=== PATIENT | male | born 1990 | race African-American/Black ===

== ENCOUNTER 2018-12-04 16:39 | Inpatient (IN) | payer OTHER ==
--- NOTE | 2018-12-04 16:44 | PDOC ---
Rapid Medical Evaluation Time Seen by Provider: 12/04/18 16:42 Medical Evaluation: 12/04/18 16:42 I have performed a brief in-person evaluation of this patient. The patient presents with a chief complaint of:R LQU released from hospital for "appendicitis" Pain x 3 days released from hospital Sunday Pertinent physical exam findings: RLQ tenderness no guarding or rebound I have ordered the following:labs CT The patient will proceed to the ED for further evaluation. 12/04/18 16:44 Discharge Disposition - Diagnosis Abdominal pain - Referrals - Patient Instructions - Post Discharge Activity
[2018-12-04 16:45] VITALS: BMI 30.5
[2018-12-04 17:12] LABS: BASO % 0.4 % (0-2.0); EOS % 0.6 % (0-4.5); HEMATOCRIT 39.6 % (35.4-49); HEMOGLOBIN 13.9 GM/dL (11.7-16.9); LYMPH % 21.2 % (8-40); MEAN CELL VOLUME 82.9 fl (80-96); MEAN PLT VOLUME 7.7 fl (7.5-11.1); MONO % 7.3 % (3.8-10.2); NEUT % 70.5 % (42.8-82.8); PLATELET COUNT 269 K/MM3 (134-434); RBC 4.78 M/mm3 (4.00-5.60); RDW 13.9 % (11.9-15.9)
[2018-12-04 17:43] LABS: ALBUMIN 3.9 g/dl (3.4-5.0); ALK PHOS 95 U/L (45-117); ANION GAP 7 MMOL/L (8-16); BILIRUBIN,TOTAL 0.8 mg/dL (0.2-1); BLOOD UREA NITROGEN 9 mg/dL (7-18); CHLORIDE 105 mmol/L (98-107); CO2 27 mmol/L (21-32); CREATININE 1.4 mg/dL (0.55-1.3); GLUCOSE,RANDOM 96 mg/dL (74-106); POTASSIUM 4.1 mmol/L (3.5-5.1); SGOT/AST 13 U/L (15-37); SGPT/ALT 16 U/L (13-61); SODIUM 139 mmol/L (136-145); TOT PROT 7.6 g/dl (6.4-8.2)
--- NOTE | 2018-12-04 17:58 | PDOC ---
*Physical Exam - Vital Signs Last Vital Signs Temp Pulse Resp BP Pulse Ox 98.1 F 82 16 116/76 98 12/04/18 17:38 12/04/18 17:38 12/04/18 17:38 12/04/18 17:38 12/04/18 17:38 ED Treatment Course - LABORATORY CBC & Chemistry Diagram: 12/05/18 08:00 12/05/18 08:00 - ADDITIONAL ORDERS Additional order review: Laboratory Results 12/04/18 17:04 Sodium 139 Potassium 4.1 Chloride 105 Carbon Dioxide 27 Anion Gap 7 L BUN 9 Creatinine 1.4 H Creat Clearance w eGFR > 60 Random Glucose 96 Calcium 9.0 Total Bilirubin 0.8 AST 13 L ALT 16 Alkaline Phosphatase 95 Total Protein 7.6 Albumin 3.9 12/04/18 17:04 RBC 4.78 MCV 82.9 MCHC 35.0 RDW 13.9 MPV 7.7 Neutrophils % 70.5 Lymphocytes % 21.2 Monocytes % 7.3 Eosinophils % 0.6 Basophils % 0.4 Medical Decision Making - Medical Decision Making 12/04/18 17:58 28 yo M, no significant history who present to the ER with a complaint of RLQ pain, N/V Was seen at an OSH where CT possible appy, admitted, given IV abx, discharged to home Pain has improved, but pt persistently nauseous Pending Labs, Pending CT Pt signed out to overnight team Pt seen by Midlevel Provider under my direct supervision Ancillary studies reviewed I agree with plan as outlined by Midlevel Provider *DC/Admit/Observation/Transfer Diagnosis at time of Disposition: Appendicitis Abdominal pain Qualifiers: Abdominal location: right lower quadrant Qualified Code(s): R10.31 - Right lower quadrant pain - Discharge Dispostion Condition at time of disposition: Improved - Referrals - Patient Instructions - Post Discharge Activity
--- NOTE | 2018-12-04 18:12 | PDOC ---
History of Present Illness - General Chief Complaint: Pain Stated Complaint: ABD/VOMITING Time Seen by Provider: 12/04/18 16:42 History Source: Patient - History of Present Illness Timing/Duration: reports: constant Abdominal Pain Onset Location: reports: RLQ Past History - Past Medical History Allergies/Adverse Reactions: Allergies Allergy/AdvReac Type Severity Reaction Status Date / Time haloperidol [From Haldol] Allergy Verified 12/04/18 16:46 Home Medications: Ambulatory Orders Diphenhydramine HCl [Benadryl -] 25 mg PO ONCE 12/04/18 Paliperidone [Invega -] 3 mg PO DAILY 12/04/18 COPD: No Other medical history: psych - Suicide/Smoking/Psychosocial Hx Smoking History: Never smoked Information on smoking cessation initiated: No Hx Alcohol Use: No Drug/Substance Use Hx: No Review of Systems - Review of Systems Constitutional: No: Chills, Fever ABD/GI: Yes: Nausea, Vomiting, Abdominal cramping. No: Constipated, Diarrhea, Rectal Bleeding, Tarry Stools : No: Dysuria *Physical Exam - Vital Signs Last Vital Signs Temp Pulse Resp BP Pulse Ox 98.1 F 82 16 116/76 98 12/04/18 17:38 12/04/18 17:38 12/04/18 17:38 12/04/18 17:38 12/04/18 17:38 - Physical Exam General Appearance: Yes: Appropriately Dressed. No: Apparent Distress HEENT: positive: Normal Voice Neck: positive: Supple Respiratory/Chest: negative: Respiratory Distress Gastrointestinal/Abdominal: positive: Normal Bowel Sounds, Soft. negative: Tender, Distended, Guarding, Rebound Musculoskeletal: negative: CVA Tenderness Integumentary: positive: Dry, Warm Neurologic: positive: Fully Oriented, Alert, Normal Mood/Affect Moderate Sedation - Procedure Monitoring Vital Signs: Procedure Monitoring Vital Signs Temperature 98.1 F 12/04/18 17:38 Pulse Rate 82 12/04/18 17:38 Respiratory Rate 16 12/04/18 17:38 Blood Pressure 116/76 12/04/18 17:38 O2 Sat by Pulse Oximetry (%) 98 12/04/18 17:38 ED Treatment Course - LABORATORY CBC & Chemistry Diagram: 12/04/18 17:04 12/04/18 17:04 - ADDITIONAL ORDERS Additional order review: Laboratory Results 12/04/18 17:04 Sodium 139 Potassium 4.1 Chloride 105 Carbon Dioxide 27 Anion Gap 7 L BUN 9 Creatinine 1.4 H Creat Clearance w eGFR > 60 Random Glucose 96 Calcium 9.0 Total Bilirubin 0.8 AST 13 L ALT 16 Alkaline Phosphatase 95 Total Protein 7.6 Albumin 3.9 12/04/18 17:04 RBC 4.78 MCV 82.9 MCHC 35.0 RDW 13.9 MPV 7.7 Neutrophils % 70.5 Lymphocytes % 21.2 Monocytes % 7.3 Eosinophils % 0.6 Basophils % 0.4 - RADIOLOGY Radiology Studies Ordered: Category Date Time Status ABDOMEN & PELVIS CT WITH CONTR [CT] Stat CT Scan 12/04/18 17:07 Ordered Medical Decision Making - Medical Decision Making 12/04/18 18:09 28 yo M, no sig hx, here w/ RLQ pain w/ n/v. Pt states he was seen in the ED at [facility] and had CT (dry) which showed possible appy and was admitted overnight and given IV abx. Was discharged yesterday on abx which patient has not been able to take 2/2 persistent n/v. States pain has since improved. No change in BM, f/c See exam R/o appy -labs -CT 12/04/18 18:12 Cr 1.4 w/ > 60GFR. No h/o renal disease. As unclear appy seen on dry CT 2 days ago, would be better to get IV contrast today. Creatinine discussed with patient and understands that benefits outweighs risks in this case. Pt consents to having CT with IV contrast at this time 12/04/18 19:09 Signed out to JOSE Slaughter pending CT read *DC/Admit/Observation/Transfer Diagnosis at time of Disposition: Abdominal pain - Referrals - Patient Instructions - Post Discharge Activity
--- NOTE | 2018-12-04 19:58 | PDOC ---
*Physical Exam - Vital Signs Last Vital Signs Temp Pulse Resp BP Pulse Ox 98.1 F 82 16 116/76 98 12/04/18 17:38 12/04/18 17:38 12/04/18 17:38 12/04/18 17:38 12/04/18 17:38 - Physical Exam General Appearance: Yes: Appropriately Dressed Respiratory/Chest: positive: Lungs Clear, Normal Breath Sounds Cardiovascular: positive: Regular Rhythm, Regular Rate Gastrointestinal/Abdominal: positive: Soft Musculoskeletal: positive: Normal Inspection Extremity: positive: Normal Capillary Refill, Normal Inspection, Normal Range of Motion Integumentary: positive: Normal Color, Dry, Warm Neurologic: positive: Fully Oriented, Alert, Normal Mood/Affect ED Treatment Course - LABORATORY CBC & Chemistry Diagram: 12/04/18 17:04 12/04/18 17:04 - ADDITIONAL ORDERS Additional order review: Laboratory Results 12/04/18 17:04 Sodium 139 Potassium 4.1 Chloride 105 Carbon Dioxide 27 Anion Gap 7 L BUN 9 Creatinine 1.4 H Creat Clearance w eGFR > 60 Random Glucose 96 Calcium 9.0 Total Bilirubin 0.8 AST 13 L ALT 16 Alkaline Phosphatase 95 Total Protein 7.6 Albumin 3.9 12/04/18 17:04 RBC 4.78 MCV 82.9 MCHC 35.0 RDW 13.9 MPV 7.7 Neutrophils % 70.5 Lymphocytes % 21.2 Monocytes % 7.3 Eosinophils % 0.6 Basophils % 0.4 Medical Decision Making - Medical Decision Making 12/04/18 20:00 28 year old male c/o RLQ pain and vomiting. CTAP: early appendicitis could not be excluded. I spoke to Charge Nurse: Abdoulaye galan: chart reviewed ; CT showed early appendicitis. cefoxitin was given x 48 hours . WBC 6.9 i spoke to Christina Bose. patient to be evaluated for surgery 12/04/18 20:29 12/04/18 21:03 Dr. monahan recommends observation. IVF NPO except for meds. surgery consult tomorrow. no antibiotics at this time. antiemetics prn and tylenol for pain. *DC/Admit/Observation/Transfer Diagnosis at time of Disposition: Abdominal pain Qualifiers: Abdominal location: right lower quadrant Qualified Code(s): R10.31 - Right lower quadrant pain Appendicitis Qualifiers: Appendicitis type: acute appendicitis Acute appendicitis type: unspecified acute appendicitis type Qualified Code(s): K35.80 - Unspecified acute appendicitis - Discharge Dispostion Decision to Admit order: Yes - Referrals - Patient Instructions - Post Discharge Activity
[2018-12-04] MEDS ORDERED: SODIUM CHLORIDE 1,000 ML IV SCH ×2 (20:00→20:45)
[2018-12-04] MEDS ORDERED: ACETAMINOPHEN 1000 MG/100 ML VIAL (NON FORMULARY) IVPB ONE (20:25)
[2018-12-04] MEDS ORDERED: ACETAMINOPHEN INJECTION 100 ML IVPB ONE (20:34)
[2018-12-04] MEDS ORDERED: ONDANSETRON 4 MG/2 ML VIAL IVPB ONE (21:04)
[2018-12-04 21:25] LABS: INR 1.06 (0.83-1.09); PROTHROMBIN TIME (PATIENT) 12.5 SEC (9.7-13.0)
--- NOTE | 2018-12-04 21:40 | PN ---
Teaching Attending Note Name of Resident: Brook Eubanks ATTENDING PHYSICIAN STATEMENT I saw and evaluated the patient. I reviewed the resident's note and discussed the case with the resident. I agree with the resident's findings and plan as documented. SUBJECTIVE: Patient is a 28 year old man with PMH of schizophrenia and asthma who presents with RLQ pain, nausea and vomiting. Patient states he was seen in the ED at [facility] and had CT (dry) which showed possible appendicitis and was admitted overnight and given IV antibiotics. He was discharged yesterday on antibiotics which patient has not been able to take due to persistent nause and vomiting. States pain has since improved. No change in BM, fever or chills. Currently on disability and denies use of any illicit drugs. OBJECTIVE: Alert Vital Signs Period Temp Pulse Resp BP Sys/Mejia Pulse Ox Last 24 Hr 98.1 F-98.4 F 68-83 16-19 116-127/76-78 95-98 HEENT: No Jaundice, eye redness or discharge, PERRLA, EOMI. Normocephalic, atraumatic. External ears are normal and hearing is grossly intact. No nasal discharge. Neck: Supple, nontender. No palpable adenopathy or thyromegaly. No JVD Chest: Good effort. Clear to auscultation and percussion. Heart: Regular. No S3, rub or murmur Abdomen: Not distended, soft, RLQ tenderness and no HSM. No rebound or guarding. Normoactive bowel sounds. Ext: Peripheral pulses intact. No leg edema. Skin: Warm and dry. No petechiae, rash or ecchymosis. Neuro: Alert. Oriented x3. CN 2-12 grossly intact. Sensation grossly intact in all four extremities and DTR are symmetric. Current Medications Generic Name Dose Route Start Last Admin Trade Name Freq PRN Reason Stop Dose Admin Sodium Chloride 1,000 mls @ 150 mls/hr 12/04/18 20:00 12/04/18 20:08 Normal Saline - IV 150 mls/hr ASDIR RUBI Administration Sodium Chloride 1,000 mls @ 150 mls/hr 12/04/18 20:45 12/04/18 20:49 Normal Saline - IV 150 mls/hr ASDIR RUBI Administration Home Medications Medication Instructions Recorded Diphenhydramine HCl [Benadryl -] 25 mg PO ONCE 12/04/18 Paliperidone [Invega -] 3 mg PO DAILY 12/04/18 Abnormal Lab Results 12/04/18 17:04 Anion Gap 7 L Creatinine 1.4 H AST 13 L ASSESSMENT AND PLAN: 1. Abdominal Pain/Rule out appendicitis - CT scan suggestive of appendicitis. Prior antibiotics use may be clouding the picture. Will hold off on antibiotics as per surgeon, keep him NPO and control severe pain. IV NS, zofran. WIll get EKG since he is getting Zofran. Check urine toxicology. Surgery consulted. 2. Obesity - Will provide patient all the necessary assistance, counseling and positive reinforcement to facilitate weight loss. Consult lightning protection installer. 3. DVT prophylaxis - SCDs, TEDs 4. Advance directives - Full code
[2018-12-04] MEDS ORDERED: ONDANSETRON 4 MG/2 ML VIAL ONE (22:28)
--- NOTE | 2018-12-04 23:51 | HP ---
CHIEF COMPLAINT: RLQ abdominal pain PCP: Dr. Palomo HISTORY OF PRESENT ILLNESS: 28M w/ pmhx of asthma and schizophrenia presented to the ED with RLQ abdominal pain that started this past Sunday. The pain is 8/10 located in the RLQ as well as umbilical region. It is described as intermittent, non-radiating, sharp, but also pressure-like. The abd pain is worsened with food and alleviated when he is not eating. He denies taking anything for the pain. He does admit to eating fish that he cooks at home, however when he does eat, he feels the need to vomit. Today he reported 2 episodes of nonbloody, non-bilious vomiting soon after eating. He denies eating anything new from what he usually eats. He also endorses 1 episode of diarrhea today, non-bloody. Of note, pt was recently seen at [facility] for the same symptoms where a CTAP was done that showed early appendicitis. During that previous admission at [facility], pt was given 1 dose of Cefoxitin and evaluated by surgery, but no surgical intervention was needed. He was subsequently discharged, but these abdominal symptoms still persisted. Denies chest pain, sob, headache, dizziness, fever/chills, dysuria, hematuria, blood in the stool. ER course was notable for: (1) VS wnl, normal WBC, BUN/Cr 9/1.4 (2) CTAP showed borderline appendix 10 mm diameter and ? minimal stranding surrounding fat w/o evid. of extraluminal air/fluid collection/abscess (3) NS @ 150, IV Tylenol; per surg recs, no abx recommended, keep NPO except meds, admit to obs Recent Travel: Denies PAST MEDICAL HISTORY: Asthma Schizophrenia PAST SURGICAL HISTORY: hernia repair at 6 months of age Social History: Smoking: Denies Alcohol: Denies Drugs: Denies Family History: Father - recently from colon cancer Oct 2018 at age 49 Allergies haloperidol [From Haldol] Allergy (Verified 12/04/18 16:46) tongue swelling HOME MEDICATIONS: Home Medications Medication Instructions Recorded Diphenhydramine HCl [Benadryl -] 25 mg PO ONCE 12/04/18 Paliperidone [Invega -] 3 mg PO DAILY 12/04/18 REVIEW OF SYSTEMS CONSTITUTIONAL: Denies fever/chills, diaphoresis, generalized weakness, malaise , loss of appetite, weight change HEENT: Denies throat pain, throat swelling, eye pain; Admits to some blurry vision but has not seen an ophtho CARDIOVASCULAR: Denies chest pain, syncope, palpitations, irregular heart rate, lightheadedness, peripheral edema RESPIRATORY: Denies cough, shortness of breath, dyspnea with exertion GASTROINTESTINAL: Admits to RLQ pain, umbilical pain, nausea/vomiting, diarrhea ; Denies constipation, melena, hematochezia GENITOURINARY: Denies dysuria, frequency, urgency, hesitancy, hematuria, flank pain MUSCULOSKELETAL: Denies myalgia, arthralgia, joint swelling, back pain, neck pain NEUROLOGIC: Denies headache, focal weakness or paresthesias, dizziness, unsteady gait, seizure, mental status changes PHYSICAL EXAMINATION Vital Signs - 24 hr 12/04/18 12/04/18 12/04/18 16:43 17:38 20:29 Temperature 98.1 F 98.1 F 98.4 F Pulse Rate 83 Pulse Rate [ 82 68 Left Radial] Respiratory 19 16 16 Rate Blood Pressure 116/76 Blood Pressure 116/76 127/78 [Right Arm] O2 Sat by Pulse 95 98 98 Oximetry (%) GENERAL: AAOx3. Comfortable, NAD. HEENT: AT/NC. EOMI. DELBERT. Moist mucus membranes. NECK: Supple, normal ROM. No LAD. LUNGS: CTA B/L. No wheezes/crackles noted. Symmetric chest rise. HEART: RRR. Normal S1, S2. No murmurs noted. ABDOMEN: Soft, ND. +TTP RLQ and umbilical region. -Juarez sign, -Rovsing sign, + McBurney's point, -Obturator sign. No rebound tenderness or guarding. No masses or ecchymoses seen. MUSCULOSKELETAL: Normal range of motion at all joints. No bony deformities or tenderness. No CVA tenderness. UPPER EXTREMITIES: 2+ pulses, warm, well-perfused. No cyanosis. No clubbing. No peripheral edema. LOWER EXTREMITIES: 2+ pulses, warm, well-perfused. No calf tenderness. No peripheral edema. NEUROLOGICAL: Normal speech. Normal gait. Responds to commands. PSYCHIATRIC: Cooperative. Good eye contact. Flat affect. SKIN: Warm, dry, normal turgor, no rashes or lesions noted, normal capillary refill. Laboratory Results - last 24 hr 12/04/18 12/04/18 12/04/18 17:04 17:04 20:44 WBC 7.0 RBC 4.78 Hgb 13.9 Hct 39.6 MCV 82.9 MCH 29.0 MCHC 35.0 RDW 13.9 Plt Count 269 MPV 7.7 Absolute Neuts (auto) 4.9 Neutrophils % 70.5 Lymphocytes % 21.2 Monocytes % 7.3 Eosinophils % 0.6 Basophils % 0.4 Nucleated RBC % 0 PT with INR 12.50 INR 1.06 PTT (Actin FS) 35.0 Sodium 139 Potassium 4.1 Chloride 105 Carbon Dioxide 27 Anion Gap 7 L BUN 9 Creatinine 1.4 H Creat Clearance w eGFR > 60 Random Glucose 96 Calcium 9.0 Total Bilirubin 0.8 AST 13 L ALT 16 Alkaline Phosphatase 95 Total Protein 7.6 Albumin 3.9 Blood Type Antibody Screen 12/04/18 20:44 WBC RBC Hgb Hct MCV MCH MCHC RDW Plt Count MPV Absolute Neuts (auto) Neutrophils % Lymphocytes % Monocytes % Eosinophils % Basophils % Nucleated RBC % PT with INR INR PTT (Actin FS) Sodium Potassium Chloride Carbon Dioxide Anion Gap BUN Creatinine Creat Clearance w eGFR Random Glucose Calcium Total Bilirubin AST ALT Alkaline Phosphatase Total Protein Albumin Blood Type O POSITIVE Antibody Screen Negative CONSULTS: Surg- Dr. Vasquez IMAGING: * CTAP: Borderline size of the appendix measuring 10 mm diameter with questionable minimal stranding of the surrounding fat and w/o evidence of extraluminal air or fluid collection/abscess. Although exam not consistent with acute appendicitis, mild/early appendicitis could not be excluded. * EKG: sinus talia, HR 53, QTc 394 ms, no evid of ST-T changes, or TWI ASSESSMENT/PLAN: 28M w/ pmhx of asthma and schizophrenia presented to the ED with RLQ abdominal pain. #Abdominal pain; r/o early appendicitis vs. viral gastroenteritis -CTAP noted above; cannot r/o early appendicitis. -Per surg recs, keep pt NPO except meds, give IVF, no abx needed now, avoid narcotics for pain control; await further recs -Utox ordered -Zofran PRN for nausea -Tylenol 650 PRN for pain #Schizophrenia Cont home med: Invega 3 mg QD #Asthma; controlled. -Pt has hx of asthma but has not needed to use his PRN inhaler in years. -Monitor #Prophylaxis -SCDs #FEN -NS @ 150 -recheck BMP in AM (Cr) -NPO except meds dispo -admit to med-surg -full code Visit type - Emergency Visit Emergency Visit: Yes ED Registration Date: 12/04/18 Care time: The patient presented to the Emergency Department on the above date and was hospitalized for further evaluation of their emergent condition. - New Patient This patient is new to me today: Yes Date on this admission: 12/05/18 - Critical Care Critical Care patient: No
[2018-12-05] MEDS ORDERED: ACETAMINOPHEN 325 MG TABLET (FP) PO PRN ×2 (00:07→17:51)
[2018-12-05 04:04] LABS: COCAINE, UR NEGATIVE ng/ml (CUTOFF=300); METHADONE, UR NEGATIVE ng/ml (CUTOFF=300); OPIATES, URI NEGATIVE ng/ml (CUTOFF=300); PHENCYCLIDINE,URINE NEGATIVE ng/ml (CUTOFF=25); URINE AMPHETAMINES NEGATIVE ng/ml (CUTOFF=500); URINE BARBITURATES NEGATIVE ng/ml (CUTOFF=200); URINE BENZODIAZEPINES NEGATIVE ng/ml (CUTOFF=200)
[2018-12-05 04:12] LABS: PH,URINE 6.5 (5.0-8.0); URINE APPEARANCE Clear; URINE BILIRUBIN Negative (<2.0 mg/dL); URINE COLOR Yellow; URINE GLUCOSE (UA) Negative (NEGATIVE); URINE KETONE 1+ (NEGATIVE); URINE LEUK ESTERASE Negative (NEGATIVE); URINE NITRITE Negative (NEGATIVE); URINE PROTEIN Negative (NEGATIVE); URINE UROBILINOGEN 0.2 mg/dL (0.2-1.0)
--- NOTE | 2018-12-05 07:12 | CONSULT ---
Consult Consult Specialty:: general surgery Reason for Consultation:: appendicitis? - History of Present Illness Chief Complaint: right lower quadrant abdominal pain History of Present Illness: 28yo male PMH asthma and schizophrenia presented to the ED with RLQ abdominal pain that started this past Sunday. The pain is 8/10 located in the RLQ as well as umbilical region. It is described as intermittent, non-radiating, sharp, but also pressure-like. The abd pain is worsened with food and alleviated when he is not eating. He denies taking anything for the pain. He does admit to eating fish that he cooks at home, however when he does eat, he feels the need to vomit. Today he reported 2 episodes of nonbloody, non-bilious vomiting soon after eating. He denies eating anything new from what he usually eats. He also endorses 1 episode of diarrhea today, non-bloody. Of note, pt was recently seen at [facility] for the same symptoms where a CTAP was done that showed early appendicitis. During that previous admission at [facility], pt was given 1 dose of Cefoxitin and evaluated by surgery, but no surgical intervention was needed. He was subsequently discharged, but these abdominal symptoms still persisted. We were asked to assess. - History Source History Provided By: Patient, Medical Record Limitations to Obtaining History: Poor Historian - Alcohol/Substance Use Hx Alcohol Use: No - Smoking History Smoking history: Never smoked Home Medications - Allergies Allergies/Adverse Reactions: Allergies Allergy/AdvReac Type Severity Reaction Status Date / Time haloperidol [From Haldol] Allergy Verified 12/04/18 16:46 - Home Medications Home Medications: Ambulatory Orders Diphenhydramine HCl [Benadryl -] 25 mg PO ONCE 12/04/18 Paliperidone [Invega -] 3 mg PO DAILY 12/04/18 Family Disease History - Family Disease History Family Disease History: CA: Father Review of Systems - Review of Systems Constitutional: denies: Chills, Fever Eyes: denies: Blind Spots, Recent Change in Vision HENT: denies: Difficult Swallowing, Toothache Neck: denies: Decreased ROM, Tenderness Cardiovascular: denies: Chest Pain, Palpitations Respiratory: denies: Cough, SOB Gastrointestinal: reports: Abdominal Pain, Nausea, Vomiting. denies: Constipation, Diarrhea Genitourinary: denies: Burning, Discharge, Dysuria Breasts: reports: No Symptoms Reported. denies: Pain Musculoskeletal: denies: Joint Swelling, Muscle Pain, Muscle Cramps Integumentary: denies: Pruritis, Wound Neurological: denies: Change in LOC, Change in Speech, Seizure, Syncope Endocrine: denies: Unexplained Weight Gain, Unexplained Weight Loss Hematology/Lymphatic: denies: Easily Bruised, Excessive Bleeding Psychiatric: reports: Paranoia. denies: Anxiety, Depression Physical Exam Vital Signs: Vital Signs Temperature 97.6 F 12/05/18 06:00 Pulse Rate 55 L 12/05/18 06:00 Respiratory Rate 18 12/05/18 06:00 Blood Pressure 97/44 L 12/05/18 06:00 O2 Sat by Pulse Oximetry (%) 99 12/05/18 02:12 Constitutional: Yes: Well Nourished, No Distress, Calm Eyes: Yes: Conjunctiva Clear, EOM Intact HENT: Yes: Atraumatic, Normocephalic Neck: Yes: Supple, Trachea Midline Cardiovascular: Yes: Regular Rate and Rhythm, S1, S2 Respiratory: Yes: Regular, CTA Bilaterally Gastrointestinal: Yes: Normal Bowel Sounds, Soft, Hernia (small umbilical hernia ), Tenderness, Tenderness, Rebound (RLQ). No: Abdomen, Obese, Ascites, Distention, Hepatomegaly, Tenderness, Epigastrium, Vomiting Renal/: No: CVA Tenderness - Left, CVA Tenderness - Right Breast(s): No: Gynecomastia, Mass, Nipple Inversion Musculoskeletal: No: Muscle Pain, Muscle Weakness Extremities: No: Cool, Cyanosis Edema: No Peripheral Pulses WNL: Yes Integumentary: No: Jaundice, Laceration Neurological: Yes: Alert, Oriented Psychiatric: Yes: Alert, Oriented Labs: CBC, BMP 12/04/18 17:04 12/04/18 17:04 Imaging - Results Cat Scan: Report Reviewed, Image Reviewed (10mm appendix, luminal air, some possible mild inflamatory changes) Problem List - Problems (1) Appendicitis Assessment/Plan: 28 yo male with persistent RLQ pain, no similar previous pains, no fever, normal WBC while in PO antibiotics from [facility], Imaging finding are suspicious but not diagnostic. He has RLQ tenderness that is focal, without peritonitis. He is explained all finding and offered appendectomy. He is aware of the possibility of it not being acute but is willing to proceed. NPO and IVF hydration IV antibiotics now and continue PO as an outpatient adequate analgesia Discussed with patient risks, benefits and alternatives of laparoscopic possible open ectomy, including but not limited to bleeding, infection, injury to adjacent structures, leak or injury, intraabdominal abscess, incisional hernia, need for further procedures, ; alternatives include antibiotics, delayed or no surgery - risks of this include failure of nonoperative therapy, perforation, sepsis, recurrence, . Patient desires to proceed with operation - will take to OR for above. Informed consent signed for same. Thank you for the opportunity to participate in the care of this patient. Code(s): K37 - UNSPECIFIED APPENDICITIS Qualifiers: Appendicitis type: acute appendicitis Acute appendicitis type: unspecified acute appendicitis type Qualified Code(s): K35.80 - Unspecified acute appendicitis (2) Right lower quadrant abdominal pain Code(s): R10.31 - RIGHT LOWER QUADRANT PAIN (3) Schizophrenia Code(s): F20.9 - SCHIZOPHRENIA, UNSPECIFIED Qualifiers: Schizophrenia type: paranoid schizophrenia Qualified Code(s): F20.0 - Paranoid schizophrenia (4) Asthma Code(s): J45.909 - UNSPECIFIED ASTHMA, UNCOMPLICATED Qualifiers: Asthma severity: mild Asthma persistence: intermittent Asthma complication type: uncomplicated Qualified Code(s): J45.20 - Mild intermittent asthma, uncomplicated
[2018-12-05 08:35] LABS: BASO % 0.4 % (0-2.0); EOS % 0.8 % (0-4.5); HEMATOCRIT 36.9 % (35.4-49); HEMOGLOBIN 12.7 GM/dL (11.7-16.9); LYMPH % 32.2 % (8-40); MCH 28.5 pg (25.7-33.7); MCHC 34.4 g/dl (32.0-35.9); MEAN CELL VOLUME 82.8 fl (80-96); MEAN PLT VOLUME 7.8 fl (7.5-11.1); MONO % 8.9 % (3.8-10.2); NEUT % 57.7 % (42.8-82.8); PLATELET COUNT 245 K/MM3 (134-434); RBC 4.46 M/mm3 (4.00-5.60); RDW 13.5 % (11.9-15.9); WHITE BLOOD COUNT 5.1 K/mm3 (4.0-10.0)
[2018-12-05 08:57] LABS: ALBUMIN 3.4 g/dl (3.4-5.0); ALK PHOS 81 U/L (45-117); ANION GAP 6 MMOL/L (8-16); BILIRUBIN,TOTAL 0.8 mg/dL (0.2-1); BLOOD UREA NITROGEN 5 mg/dL (7-18); CALCIUM 8.2 mg/dL (8.5-10.1); CHLORIDE 109 mmol/L (98-107); CO2 26 mmol/L (21-32); CREATININE 1.1 mg/dL (0.55-1.3); GLUCOSE,RANDOM 74 mg/dL (74-106); POTASSIUM 4.1 mmol/L (3.5-5.1); SGOT/AST 9 U/L (15-37); SGPT/ALT 11 U/L (13-61); SODIUM 141 mmol/L (136-145); TOT PROT 6.3 g/dl (6.4-8.2)
[2018-12-05] MEDS ORDERED: ENOXAPARIN NA (PORCINE) 40 MG/0.4 ML DISP.SYRIN SQ SCH (10:00)
[2018-12-05] MEDS ORDERED: PALIPERIDONE 3 MG PO SCH ×2 (10:00)
--- NOTE | 2018-12-05 13:14 | PN ---
Physical Exam: SUBJECTIVE: Patient seen and examined at bedside- patient is still having some minor pain rates it a 4/10 however denies any N/V fevers or chills OBJECTIVE: Vital Signs Period Temp Pulse Resp BP Sys/Mejia Pulse Ox Last 24 Hr 97.6 F-98.4 F 55-83 16-20 97-132/44-87 95-99 GENERAL: The patient is awake, alert, and fully oriented, in no acute distress. EYES:EOMI; PEERLA: no sclerla icterus. NECK: no JVD; no lymphadenopathy LUNGS: CTA B/L; no rales, rhonchi or wheezing. HEART: Regular rate and rhythm, S1, S2 without murmur, rub or gallop. ABDOMEN: distended; slight tenderness negative rovsings +BS in all 4 quadrants EXTREMITIES: 2+ pulses, warm, well-perfused, no edema. NEUROLOGICAL: Cranial nerves II through XII grossly intact. Normal speech, gait not observed. PSYCH: Normal mood, flat affect. SKIN: Warm, dry, normal turgor, no rashes or lesions noted Laboratory Results - last 24 hr 12/04/18 12/04/18 12/04/18 17:04 17:04 20:44 WBC 7.0 RBC 4.78 Hgb 13.9 Hct 39.6 MCV 82.9 MCH 29.0 MCHC 35.0 RDW 13.9 Plt Count 269 MPV 7.7 Absolute Neuts (auto) 4.9 Neutrophils % 70.5 Lymphocytes % 21.2 Monocytes % 7.3 Eosinophils % 0.6 Basophils % 0.4 Nucleated RBC % 0 PT with INR 12.50 INR 1.06 PTT (Actin FS) 35.0 Sodium 139 Potassium 4.1 Chloride 105 Carbon Dioxide 27 Anion Gap 7 L BUN 9 Creatinine 1.4 H Creat Clearance w eGFR > 60 Random Glucose 96 Calcium 9.0 Total Bilirubin 0.8 AST 13 L ALT 16 Alkaline Phosphatase 95 Total Protein 7.6 Albumin 3.9 Urine Color Urine Appearance Urine pH Ur Specific [place] Urine Protein Urine Glucose (UA) Urine Ketones Urine Blood Urine Nitrite Urine Bilirubin Urine Urobilinogen Ur Leukocyte Esterase Opiates Screen Methadone Screen Barbiturate Screen Phencyclidine Screen Ur Amphetamines Screen MDMA (Ecstasy) Screen Benzodiazepines Screen Cocaine Screen U Marijuana (THC) Screen Blood Type Antibody Screen 12/04/18 12/05/18 12/05/18 20:44 02:00 02:40 WBC RBC Hgb Hct MCV MCH MCHC RDW Plt Count MPV Absolute Neuts (auto) Neutrophils % Lymphocytes % Monocytes % Eosinophils % Basophils % Nucleated RBC % PT with INR INR PTT (Actin FS) Sodium Potassium Chloride Carbon Dioxide Anion Gap BUN Creatinine Creat Clearance w eGFR Random Glucose Calcium Total Bilirubin AST ALT Alkaline Phosphatase Total Protein Albumin Urine Color Yellow Urine Appearance Clear Urine pH 6.5 Ur Specific [place] 1.010 Urine Protein Negative Urine Glucose (UA) Negative Urine Ketones 1+ H Urine Blood Negative Urine Nitrite Negative Urine Bilirubin Negative Urine Urobilinogen 0.2 Ur Leukocyte Esterase Negative Opiates Screen Negative Methadone Screen Negative Barbiturate Screen Negative Phencyclidine Screen Negative Ur Amphetamines Screen Negative MDMA (Ecstasy) Screen Negative Benzodiazepines Screen Negative Cocaine Screen Negative U Marijuana (THC) Screen Negative Blood Type O POSITIVE Antibody Screen Negative 12/05/18 12/05/18 08:00 08:00 WBC 5.1 RBC 4.46 Hgb 12.7 Hct 36.9 MCV 82.8 MCH 28.5 MCHC 34.4 RDW 13.5 Plt Count 245 MPV 7.8 Absolute Neuts (auto) 3.0 Neutrophils % 57.7 Lymphocytes % 32.2 D Monocytes % 8.9 Eosinophils % 0.8 Basophils % 0.4 Nucleated RBC % 0 PT with INR INR PTT (Actin FS) Sodium 141 Potassium 4.1 Chloride 109 H Carbon Dioxide 26 Anion Gap 6 L BUN 5 L Creatinine 1.1 Creat Clearance w eGFR > 60 Random Glucose 74 Calcium 8.2 L Total Bilirubin 0.8 AST 9 L ALT 11 L Alkaline Phosphatase 81 Total Protein 6.3 L Albumin 3.4 Urine Color Urine Appearance Urine pH Ur Specific [place] Urine Protein Urine Glucose (UA) Urine Ketones Urine Blood Urine Nitrite Urine Bilirubin Urine Urobilinogen Ur Leukocyte Esterase Opiates Screen Methadone Screen Barbiturate Screen Phencyclidine Screen Ur Amphetamines Screen MDMA (Ecstasy) Screen Benzodiazepines Screen Cocaine Screen U Marijuana (THC) Screen Blood Type Antibody Screen Active Medications Generic Name Dose Route Start Last Admin Trade Name Freq PRN Reason Stop Dose Admin Acetaminophen 650 mg 12/05/18 00:07 Tylenol - PO Q4H PRN PAIN LEVEL 6-10 Sodium Chloride 1,000 mls @ 150 mls/hr 12/04/18 20:45 12/04/18 20:49 Normal Saline - IV 150 mls/hr ASDIR RUBI Administration Patient's Own Med ( 3 each 12/05/18 10:00 Paliperidone 3mg PO Tablets) DAILY RUBI ASSESSMENT/PLAN: 28M w/ pmhx of asthma and schizophrenia presented to the ED with RLQ abdominal pain. #Abdominal pain; r/o early appendicitis vs. viral gastroenteritis -Per surg recs, keep pt NPO except meds, give IVF, no abx needed now, avoid narcotics for pain control; await further recs -Utox ordered -Zofran PRN for nausea -Tylenol 650 PRN for pain #Schizophrenia Cont home med: Invega 3 mg QD #Asthma; controlled. -Pt has hx of asthma but has not needed to use his PRN inhaler in years. -Monitor #Prophylaxis -SCDs #FEN -NS @ 150 -recheck BMP in AM (Cr) -NPO except meds dispo -admit to med-surg -full code Problem List - Problems (1) Abdominal pain Code(s): R10.9 - UNSPECIFIED ABDOMINAL PAIN Qualifiers: Abdominal location: right lower quadrant Qualified Code(s): R10.31 - Right lower quadrant pain (2) Appendicitis Code(s): K37 - UNSPECIFIED APPENDICITIS Qualifiers: Appendicitis type: acute appendicitis Acute appendicitis type: unspecified acute appendicitis type Qualified Code(s): K35.80 - Unspecified acute appendicitis Visit type - Emergency Visit Emergency Visit: Yes ED Registration Date: 12/04/18 Care time: The patient presented to the Emergency Department on the above date and was hospitalized for further evaluation of their emergent condition. - New Patient This patient is new to me today: Yes Date on this admission: 12/05/18 - Critical Care Critical Care patient: No
[2018-12-05] MEDS ORDERED: ROCURONIUM BROMIDE 50 MG/5 ML VIAL ONE ×2 (14:26→15:42)
[2018-12-05] MEDS ORDERED: SODIUM CHLORIDE 0.9% P/F 10 ML VIAL IJ ONE (14:26)
[2018-12-05] MEDS ORDERED: ceFAZolin SODIUM 1 GM VIAL ONE (14:26)
[2018-12-05] MEDS ORDERED: DEXAMETHASONE SOD PHOSPHATE 4 MG/1 ML VIAL ONE (14:26)
[2018-12-05] MEDS ORDERED: PROPOFOL 20 ML ONE ×2 (14:26→15:42)
[2018-12-05] MEDS ORDERED: LIDOCAINE HCL/PF 2% SDV 5ML VIAL ONE (14:26)
--- NOTE | 2018-12-05 15:40 | EKG ---
Test Reason : Blood Pressure : / mmHG Vent. Rate : 053 BPM Atrial Rate : 053 BPM P-R Int : 162 ms QRS Dur : 088 ms QT Int : 420 ms P-R-T Axes : 056 086 054 degrees QTc Int : 394 ms SINUS BRADYCARDIA OTHERWISE NORMAL ECG NO PREVIOUS ECGS AVAILABLE Confirmed by JUANY CONNELL, MARYLOU ([id number]) on 12/05/2018 3:40:31 PM Referred By: Confirmed By:MARYLOU HARRINGTON MD
[2018-12-05] MEDS ORDERED: MIDAZOLAM HCL 2 MG/2 ML SINGLE DOSE VIAL ONE (15:42)
[2018-12-05] MEDS ORDERED: SUCCINYLCHOLINE CHLORIDE 200 MG/10 ML VIAL ONE (15:42)
--- NOTE | 2018-12-05 16:01 | PN ---
Teaching Attending Note Name of Resident: Mariel Gordillo ATTENDING PHYSICIAN STATEMENT I saw and evaluated the patient. I reviewed the resident's note and discussed the case with the resident. I agree with the resident's findings and plan as documented. SUBJECTIVE: Patient is c/o having RLQ abdominal pain, but has been having watery like stool , with no formed stool since Sunday. OBJECTIVE: Vital Signs Temperature 98.5 F 12/05/18 15:00 Pulse Rate 73 12/05/18 15:00 Respiratory Rate 17 12/05/18 15:00 Blood Pressure 121/63 12/05/18 15:00 O2 Sat by Pulse Oximetry (%) 99 12/05/18 09:00 GENERAL: The patient is awake, alert, and fully oriented, in no acute distress. EYES:EOMI; PEERLA: no sclerla icterus. NECK: no JVD; no lymphadenopathy LUNGS: CTA B/L; no rales, rhonchi or wheezing. HEART: Regular rate and rhythm, S1, S2 without murmur, rub or gallop. ABDOMEN: mild distention, slight tenderness on the RLQ , no rebound or guarding , positive BS in all 4 quadrants. EXTREMITIES: 2+ pulses, warm, well-perfused, no edema. NEUROLOGICAL: Cranial nerves II through XII grossly intact. Normal speech, gait not observed. PSYCH: Normal mood, flat affect. SKIN: Warm, dry, normal turgor, no rashes or lesions noted CBCD WBC 5.1 K/mm3 (4.0-10.0) 12/05/18 08:00 RBC 4.46 M/mm3 (4.00-5.60) 12/05/18 08:00 Hgb 12.7 GM/dL (11.7-16.9) 12/05/18 08:00 Hct 36.9 % (35.4-49) 12/05/18 08:00 MCV 82.8 fl (80-96) 12/05/18 08:00 MCHC 34.4 g/dl (32.0-35.9) 12/05/18 08:00 RDW 13.5 % (11.9-15.9) 12/05/18 08:00 Plt Count 245 K/MM3 (134-434) 12/05/18 08:00 MPV 7.8 fl (7.5-11.1) 12/05/18 08:00 CMP Sodium 141 mmol/L (136-145) 12/05/18 08:00 Potassium 4.1 mmol/L (3.5-5.1) 12/05/18 08:00 Chloride 109 mmol/L (98-107) H 12/05/18 08:00 Carbon Dioxide 26 mmol/L (21-32) 12/05/18 08:00 Anion Gap 6 MMOL/L (8-16) L 12/05/18 08:00 BUN 5 mg/dL (7-18) L 12/05/18 08:00 Creatinine 1.1 mg/dL (0.55-1.3) 12/05/18 08:00 Creat Clearance w eGFR > 60 (>60) 12/05/18 08:00 Random Glucose 74 mg/dL (74-106) 12/05/18 08:00 Calcium 8.2 mg/dL (8.5-10.1) L 12/05/18 08:00 Total Bilirubin 0.8 mg/dL (0.2-1) 12/05/18 08:00 AST 9 U/L (15-37) L 12/05/18 08:00 ALT 11 U/L (13-61) L 12/05/18 08:00 Alkaline Phosphatase 81 U/L (45-117) 12/05/18 08:00 Total Protein 6.3 g/dl (6.4-8.2) L 12/05/18 08:00 Albumin 3.4 g/dl (3.4-5.0) 12/05/18 08:00 Current Medications Generic Name Dose Route Start Last Admin Trade Name Ophelia PRN Reason Stop Dose Admin Acetaminophen 650 mg 12/05/18 00:07 Tylenol - PO Q4H PRN PAIN LEVEL 6-10 Sodium Chloride 1,000 mls @ 150 mls/hr 12/04/18 20:45 12/04/18 20:49 Normal Saline - IV 150 mls/hr ASDIR RUBI Administration Patient's Own Med ( 3 each 12/05/18 10:00 Paliperidone 3mg PO Tablets) DAILY [facility] Home Medications Medication Instructions Recorded Diphenhydramine HCl [Benadryl -] 25 mg PO ONCE 12/04/18 Paliperidone [Invega -] 3 mg PO DAILY 12/04/18 Urine Test Results Urine Color Yellow 12/05/18 02:40 Urine Appearance Clear 12/05/18 02:40 Urine pH 6.5 (5.0-8.0) 12/05/18 02:40 Ur Specific [place] 1.010 (1.010-1.035) 12/05/18 02:40 Urine Protein Negative (NEGATIVE) 12/05/18 02:40 Urine Glucose (UA) Negative (NEGATIVE) 12/05/18 02:40 Urine Ketones 1+ (NEGATIVE) H 12/05/18 02:40 Urine Blood Negative (NEGATIVE) 12/05/18 02:40 Urine Nitrite Negative (NEGATIVE) 12/05/18 02:40 Urine Bilirubin Negative (<2.0 mg/dL) 12/05/18 02:40 Ur Leukocyte Esterase Negative (NEGATIVE) 12/05/18 02:40 CT abdomen and pelvis reviewed: No appendicitis but na't be excluded early appendicitis as per CT read. ASSESSMENT AND PLAN: Patient is a 28M with pmhx of asthma and schizophrenia presented to the ED with RLQ abdominal pain. #Abdominal pain: as per Ct , no appendicitis but early appendicitis cannot be excluded. As per surgeon, patient will go to OR for an appendectomy. Utox is negative. Zofran PRN for nausea; Tylenol 650 PRN for pain #Schizophrenia: cont home med: Invega 3 mg QD #Asthma; controlled: PRN inhaler #DVT Px: SCDs admit to med-surg full code
[2018-12-05] MEDS ORDERED: BUPIVACAINE HCL/PF 0.5% (5MG/ML) 10 ML VIAL ONE (16:12)
[2018-12-05] MEDS ORDERED: ONDANSETRON 4 MG/2 ML VIAL IVPUSH PRN ×2 (16:17→17:53)
[2018-12-05] MEDS ORDERED: LACTATED RINGERS SOLUTION 1,000 ML IV SCH (16:30)
[2018-12-05] MEDS ORDERED: ceFAZolin 2 GRAM PREMIX BAG IVPB ONE (16:45)
[2018-12-05] MEDS ORDERED: ceFAZolin SODIUM 1 GM VIAL IVPB ONE (16:45)
[2018-12-05] MEDS ORDERED: KETOROLAC TROMETHAMINE 30 MG/1 ML VIAL ONE (17:12)
[2018-12-05] MEDS ORDERED: GLYCOPYRROLATE 0.2 MG/1 ML VIAL ONE (17:12)
[2018-12-05] MEDS ORDERED: NEOSTIGMINE METHYLSULFATE 0.5 MG/ML - 10 ML MDV ONE (17:12)
[2018-12-05] MEDS ORDERED: BUPIVACAINE HCL/PF 0.5% (5MG/ML) 10 ML VIAL IJ ONE (17:22)
[2018-12-05] MEDS ORDERED: BUPIVACAINE HCL/PF (5 MG/ML) 30 ML VIAL IJ ONE (17:22)
[2018-12-05] MEDS ORDERED: ACETAMINOPHEN 1000 MG/100 ML VIAL (NON FORMULARY) IVPB ONE ×2 (18:02→18:40)
--- NOTE | 2018-12-05 18:02 | OP ---
Operative Note - Note: Operative Date: 12/05/18 Pre-Operative Diagnosis: appendicitis Operation: laparoscopic appendectomy Findings: fusiform shapeed dilation mid appendix. no adjacent inflamatory changes or serosal irregularities. Post-Operative Diagnosis: Same as Pre-op Surgeon: Jaquan Cleary Anesthesiologist/SUPERVISOR ELEMENTARY EDUCATION: Alhaji Yun Anesthesia: General, Local (0.5% marcaine at port sites ) Specimens Removed: appendix Estimated Blood Loss (mls): 2 Drains, Volume Out (mls): 200 (shearer removed ) Fluid Volume Replaced (mls): 800 Operative Report Dictated: Yes
[2018-12-05] MEDS ORDERED: CEFOXITIN SODIUM 2 GM in DEXTROSE 5%-WATER - 100 ML IVPB ONE (18:06)
[2018-12-05] MEDS ORDERED: ACETAMINOPHEN INJECTION 100 ML IVPB ONE (18:31)
[2018-12-05] MEDS ORDERED: cefOXitin SODIUM 2 GM VIAL (RESTRICTED TO ID) IVPB ONE (19:02)
[2018-12-05] MEDS: SODIUM CHLORIDE 1,000 ML IV SCH (20:46)
[2018-12-06] MEDS: morphine SULFATE 4 MG/ML VIAL IVPUSH PRN ×3 (00:54→21:39)
--- NOTE | 2018-12-06 02:28 | PN ---
Progress Note, Physician Chief Complaint: RLQ abdominal pain and intractable vomiting History of Present Illness: 28yo male PMH asthma and schizophrenia presented to the ED with RLQ abdominal pain that started this past Sunday. The pain is 8/10 located in the RLQ as well as umbilical region. stable post operatively. - Current Medication List Current Medications: Active Medications Acetaminophen (Tylenol -) 650 mg PO Q6H PRN PRN Reason: PAIN LEVEL 1-5 Sodium Chloride (Normal Saline -) 1,000 mls @ 150 mls/hr IV ASDIR RUBI Last Admin: 12/05/18 20:46 Dose: 150 mls/hr Ibuprofen (Motrin -) 600 mg PO Q6H PRN PRN Reason: PAIN LEVEL 1-5 Morphine Sulfate (Morphine Sulfate) 4 mg IVPUSH Q4H PRN PRN Reason: PAIN LEVEL 7 - 10 Last Admin: 12/06/18 00:54 Dose: 4 mg Non-Formulary Medication (Non-Formulary Med) 3 each PO DAILY RUBI Ondansetron HCl (Zofran Injection) 4 mg IVPUSH Q8H RUBI - Objective Vital Signs: Vital Signs Temperature 97.4 F L 12/06/18 02:11 Pulse Rate 64 12/06/18 02:11 Respiratory Rate 20 12/06/18 02:11 Blood Pressure 122/57 L 12/06/18 02:11 O2 Sat by Pulse Oximetry (%) 98 12/05/18 21:00 Vital Signs Period Temp Pulse Resp BP Sys/Mejia Pulse Ox Last 24 Hr 97.4 F-98.5 F 55-81 15-20 97-132/44-87 97-99 Intake & Output 12/05/18 12/05/18 12/06/18 15:59 23:59 07:59 Intake Total 1200 Output Total 300 500 Balance 900 -500 Intake: IV 1200 Normal Saline - 1,000 ml 300 @ 150 mls/hr IV ASDIR RUBI Rx#:[id number] Output: Urine 300 500 Void 500 Other: Voiding Method Toilet Urinal # Unmeasured Voids Void 2 Bowel Movement No Constitutional: Yes: Well Nourished, Calm, Other (flat affect) Eyes: Yes: Conjunctiva Clear, EOM Intact HENT: Yes: Atraumatic, Normocephalic Neck: Yes: Supple, Trachea Midline Cardiovascular: Yes: Regular Rate and Rhythm, S1, S2 Respiratory: Yes: Regular, CTA Bilaterally Gastrointestinal: Yes: Normal Bowel Sounds, Soft, Tenderness (incisional). No: Tenderness, Epigastrium, Tenderness, Rebound Genitourinary: No: CVA Tenderness - Left, CVA Tenderness - Right Musculoskeletal: No: Joint Swelling, Muscle Weakness Extremities: No: Cool, Cyanosis Edema: No Peripheral Pulses WNL: Yes Peripheral Pulses: Left Radial: 2+, Right Radial: 2+, Left Doralis Pedis: 2+, Right Dorsalis Pedis: 2+, Left Femoral: 2+, Right Femoral: 2+ Wound/Incision: Yes: Clean/Dry, Well Approximated, Sutures Intact, Open to air Neurological: Yes: Alert, Oriented Psychiatric: Yes: Alert, Oriented Labs: CBC, BMP 12/05/18 08:00 12/05/18 08:00 INR, PTT INR 1.06 (0.83-1.09) 12/04/18 20:44 Problem List - Problems (1) Appendicitis Assessment/Plan: 28 yo male with persistent RLQ pain, no similar previous pains, no fever, normal WBC while in PO antibiotics from [facility], Imaging finding are suspicious but not diagnostic. He has RLQ tenderness that is focal, without peritonitis. He is explained all finding and offered appendectomy. He is aware of the possibility of it not being acute but is willing to proceed. POD# 1 s/p laparoscopic appenectomy. tolerated clears last night and breakfast today. Persistent abdominal pain, very flat affected. Would recommend observation overnight for re-examination. advance diet as tolerated OOB anbulate encourage IS IV antibiotics now and continue as outpatient adequate analgesia GI evaluation as outpatient for upper and lower endoscopy antiemetic therapy around the clock please discharge 12/07 Code(s): K37 - UNSPECIFIED APPENDICITIS Qualifiers: Appendicitis type: acute appendicitis Acute appendicitis type: unspecified acute appendicitis type Qualified Code(s): K35.80 - Unspecified acute appendicitis (2) Right lower quadrant abdominal pain Code(s): R10.31 - RIGHT LOWER QUADRANT PAIN (3) Schizophrenia Code(s): F20.9 - SCHIZOPHRENIA, UNSPECIFIED Qualifiers: Schizophrenia type: paranoid schizophrenia Qualified Code(s): F20.0 - Paranoid schizophrenia (4) Asthma Code(s): J45.909 - UNSPECIFIED ASTHMA, UNCOMPLICATED Qualifiers: Asthma severity: mild Asthma persistence: intermittent Asthma complication type: uncomplicated Qualified Code(s): J45.20 - Mild intermittent asthma, uncomplicated
[2018-12-06] MEDS: ONDANSETRON 4 MG/2 ML VIAL IVPUSH SCH ×3 (03:25→18:44)
[2018-12-06 07:31] LABS: HEMATOCRIT 37.1 % (35.4-49); HEMOGLOBIN 12.9 GM/dL (11.7-16.9); MCH 28.6 pg (25.7-33.7); MCHC 34.8 g/dl (32.0-35.9); MEAN CELL VOLUME 82.1 fl (80-96); MEAN PLT VOLUME 8.3 fl (7.5-11.1); PLATELET COUNT 261 K/MM3 (134-434); RBC 4.52 M/mm3 (4.00-5.60); RDW 13.5 % (11.9-15.9); WHITE BLOOD COUNT 7.8 K/mm3 (4.0-10.0)
[2018-12-06 08:18] LABS: ANION GAP 11 MMOL/L (8-16); BLOOD UREA NITROGEN 9 mg/dL (7-18); CALCIUM 8.7 mg/dL (8.5-10.1); CHLORIDE 102 mmol/L (98-107); CO2 21 mmol/L (21-32); CREATININE 0.9 mg/dL (0.55-1.3); GLUCOSE,RANDOM 87 mg/dL (74-106); POTASSIUM 4.5 mmol/L (3.5-5.1); SODIUM 134 mmol/L (136-145)
--- NOTE | 2018-12-06 09:24 | PN ---
Teaching Attending Note Name of Resident: Mariel Gordillo ATTENDING PHYSICIAN STATEMENT I saw and evaluated the patient. I reviewed the resident's note and discussed the case with the resident. I agree with the resident's findings and plan as documented. SUBJECTIVE: Patient is comfortable with no acute distress. OBJECTIVE: Vital Signs Temperature 97.4 F L 12/06/18 02:11 Pulse Rate 64 12/06/18 02:11 Respiratory Rate 20 12/06/18 02:11 Blood Pressure 122/57 L 12/06/18 02:11 O2 Sat by Pulse Oximetry (%) 98 12/05/18 21:00 GENERAL: The patient is awake, alert, and fully oriented, in no acute distress. EYES:EOMI; PEERLA: no sclerla icterus. NECK: no JVD; no lymphadenopathy LUNGS: CTA B/L; no rales, rhonchi or wheezing. HEART: Regular rate and rhythm, S1, S2 without murmur, rub or gallop. ABDOMEN: ND, incision site is clean , slight tenderness on the incision site , no rebound or guarding. EXTREMITIES: 2+ pulses, warm, well-perfused, no edema. NEUROLOGICAL: Cranial nerves II through XII grossly intact. Normal speech, gait not observed. PSYCH: Normal mood, flat affect. SKIN: Warm, dry, normal turgor, no rashes or lesions noted CBCD WBC 7.8 K/mm3 (4.0-10.0) 12/06/18 05:25 RBC 4.52 M/mm3 (4.00-5.60) 12/06/18 05:25 Hgb 12.9 GM/dL (11.7-16.9) 12/06/18 05:25 Hct 37.1 % (35.4-49) 12/06/18 05:25 MCV 82.1 fl (80-96) 12/06/18 05:25 MCHC 34.8 g/dl (32.0-35.9) 12/06/18 05:25 RDW 13.5 % (11.9-15.9) 12/06/18 05:25 Plt Count 261 K/MM3 (134-434) 12/06/18 05:25 MPV 8.3 fl (7.5-11.1) 12/06/18 05:25 CMP Sodium 134 mmol/L (136-145) L 12/06/18 05:25 Potassium 4.5 mmol/L (3.5-5.1) 12/06/18 05:25 Chloride 102 mmol/L (98-107) 12/06/18 05:25 Carbon Dioxide 21 mmol/L (21-32) 12/06/18 05:25 Anion Gap 11 MMOL/L (8-16) 12/06/18 05:25 BUN 9 mg/dL (7-18) 12/06/18 05:25 Creatinine 0.9 mg/dL (0.55-1.3) 12/06/18 05:25 Creat Clearance w eGFR > 60 (>60) 12/06/18 05:25 Random Glucose 87 mg/dL (74-106) 12/06/18 05:25 Calcium 8.7 mg/dL (8.5-10.1) 12/06/18 05:25 Total Bilirubin 0.8 mg/dL (0.2-1) 12/05/18 08:00 AST 9 U/L (15-37) L 12/05/18 08:00 ALT 11 U/L (13-61) L 12/05/18 08:00 Alkaline Phosphatase 81 U/L (45-117) 12/05/18 08:00 Total Protein 6.3 g/dl (6.4-8.2) L 12/05/18 08:00 Albumin 3.4 g/dl (3.4-5.0) 12/05/18 08:00 Current Medications Generic Name Dose Route Start Last Admin Trade Name Freq PRN Reason Stop Dose Admin Acetaminophen 650 mg 12/05/18 17:51 Tylenol - PO Q6H PRN PAIN LEVEL 1-5 Sodium Chloride 1,000 mls @ 150 mls/hr 12/05/18 20:02 12/05/18 20:46 Normal Saline - IV 150 mls/hr ASDIR RUBI Administration Ibuprofen 600 mg 12/05/18 17:51 Motrin - PO Q6H PRN PAIN LEVEL 1-5 Morphine Sulfate 4 mg 12/05/18 17:51 12/06/18 00:54 Morphine Sulfate IVPUSH 4 mg Q4H PRN Administration PAIN LEVEL 7 - 10 Non-Formulary Medication 3 each 12/06/18 10:00 Non-Formulary Med PO DAILY RUBI Ondansetron HCl 4 mg 12/06/18 02:30 12/06/18 03:25 Zofran Injection IVPUSH 4 mg Q8H-IV RUBI Administration Home Medications Medication Instructions Recorded Diphenhydramine HCl [Benadryl -] 25 mg PO ONCE 12/04/18 Paliperidone [Invega -] 3 mg PO DAILY 12/04/18 CT abdomen and pelvis reviewed: No appendicitis but na't be excluded early appendicitis as per CT read. ASSESSMENT AND PLAN: Patient is a 28M with pmhx of asthma and schizophrenia presented to the ED with RLQ abdominal pain. #POD #1 s/p lap. appendectomy , continues to have severe pain requiring IV morpine . Utox is negative. Zofran PRN for nausea; Tylenol 650 PRN for pain #Schizophrenia: cont home med: Invega 3 mg QD #Asthma; controlled: PRN inhaler #DVT Px: SCDs admit to med-surg full code
[2018-12-06] MEDS ORDERED: NON-FORMULARY MED PO SCH (10:00)
[2018-12-06] MEDS: IBUPROFEN 600 MG TABLET (FP) PO PRN ×2 (10:15→16:47)
--- NOTE | 2018-12-06 10:42 | OP ---
DATE OF OPERATION: 12/05/2018 PREOPERATIVE DIAGNOSIS: Appendicitis. POSTOPERATIVE DIAGNOSIS: Appendicitis. PROCEDURE: Laparoscopic appendectomy. ATTENDING SURGEON: Jaquan Cleary MD TWISTER IN: No one. ANESTHESIA: Alhaji Yun CRNA ANESTHESIA TYPE: General with local. Local consisted of 0.5% Marcaine a total of 10 mL given at the port sites. ESTIMATED BLOOD LOSS: 2 mL. IV FLUID ADMINISTERED: 800 mL. DRAINAGE OUTPUT: 200 mL from a Ervin, which was removed postoperatively. SPECIMEN: Appendix. FINDINGS: The patient had a fusiform-shaped dilatation mid appendix. No serosal changes. No periappendiceal inflammatory changes or serosal irregularities are noted. On the remainder of the inspection of the abdomen, no tumor implants were noted. INDICATIONS: The patient is a 28-year-old male. He presented with abdominal pain, persistent nausea and vomiting, and this was persistent over the hospitalization at [facility] where he was found to have equivocal findings for appendicitis, and he was sent out on antibiotics. He was also seen in our emergency room. CT scan had dilated appendix midbody approximately 10 mm with air, which was intraluminal, some inflammatory changes, which were relatively equivocal on the appendix. He was counseled regarding risks, benefits, and alternatives for surgical laparoscopic appendectomy given the changes and persistence of the symptoms in addition to the right lower quadrant tenderness. He signed informed consent after he was explained the risks, benefits, and alternatives, and he was taken for the procedure. DESCRIPTION OF PROCEDURE: The patient was brought to the operating room. He was placed in supine position on the operating room table with the left arm tucked and the right arm extended at 90 degrees perpendicular to the body's midline axis at the shoulder. The lower extremities had SCDs placed to compression. He was induced with general anesthesia, endotracheally intubated without incident by Anesthesia. Once asleep, anterior abdominal wall was clipped, prepped, and draped in standard surgical fashion. After a formal time-out was completed, we began first with a supraumbilical Sonu approach to the abdomen. An incision was made with a 15-blade scalpel, deepened and widened through the subcutaneous tissue. The fascia was identified at the base of the wound and elevated, and blunt entry was made into the abdomen. The fascia then had a [id number] 0 Vicryl laid in for ablation of the hole postoperatively. A Sonu trocar was installed in the abdomen 12 mm at which point a pneumoperitoneum was established to 15 mmHg. The patient was placed into a steep Trendelenburg with slight rotation to operating on the left. Additional trocar sites were placed at the supraumbilical position as well as the anterior superior iliac spine midway on the abdomen. We began then once we were able to sweep the small bowel away from the cecum, the appendix was apparent. It was grasped midbody. After inspection of the abdomen, there appeared to be no tumor implants, no serosal changes. The midbody of the appendix did appear to be somewhat dilated. There was no other sign of infectious stigmata and no purulent exudate. No pus and no drainage. The appendix did appear somewhat fusiform and midbody distended. Near the base of the appendix it was noted there was a normal caliber. A plane was created between the mesoappendix and appendix at which point we began first then with stapling the base of the appendix at the cecum with multifire Endo MARISELA stapler 30 mm. This was done, and with 3 additional firings, the mesoappendix was transected at which point hemostasis was obtained along the staple line with Bovie electrocautery. Once complete, the area was reinspected. The appendix was retrieved from the abdomen in an EndoCatch bag 10 mm from the umbilicus. Remaining ports were removed under direct visualization, and the appendix was passed off the field for the close inspection and pathologic diagnosis. The patient was restored to a level position. Pneumoperitoneum was relieved. The trocar site was ablated at the umbilicus with the 0 Vicryl and then skin was closed in running subcuticular fashion with 4-0 Biosyn burying the knots at the port sites. The skin was cleaned. Sterile dressings were placed. The patient was awoken from general anesthesia having tolerated procedure well and was stable throughout. He was returned to Recovery in stable condition. MD REMA Turpin/[id number]
--- NOTE | 2018-12-06 13:09 | PN ---
Progress Note (short form) - Note Progress Note: POD #1 - s/p laparoscopic appendectomy. VSS. Pt . doing well, resting comfortably in bed. No complaints. No apparent anesthetic complications noted. Continue current care.
[2018-12-06] MEDS ORDERED: IBUPROFEN 400 MG TABLET (FP) PO ONE (14:19)
--- NOTE | 2018-12-06 15:27 | DS ---
Physical Exam: SUBJECTIVE: Patient seen and examined at bedside- patient is POD #1 from lap appendectomy- patient has passed flatus and is tolerating his diet- he has some pain at the surgical site however he denies any N/v fevers or chills and he is getting up and walking around. states his pain is a 5/10 OBJECTIVE: Vital Signs Period Temp Pulse Resp BP Sys/Mejia Pulse Ox Last 24 Hr 97.4 F-98.5 F 64-81 15-20 110-130/57-78 97-98 PHYSICAL EXAM GENERAL: The patient is awake, alert, and fully oriented, in no acute distress. EYES: EOMI; PEERLA; no scleral icterus NECK: no JVD; no lymphadenopathy. LUNGS: CTA B/L; no rales, rhonchi or wheezing. HEART: Regular rate and rhythm, S1, S2 without murmur, rub or gallop. ABDOMEN: Soft, slight tenderness upon palpation; 3 puncture sites with glue and steri strips; c/d/i NEUROLOGICAL: Cranial nerves II through XII grossly intact. Normal speech, gait not observed. PSYCH: Normal mood, flat affect. SKIN: Warm, dry, normal turgor, no rashes or lesions noted. LABS Laboratory Results - last 24 hr 12/05/18 12/06/18 12/06/18 08:05 05:25 05:25 WBC 7.8 RBC 4.52 Hgb 12.9 Hct 37.1 MCV 82.1 MCH 28.6 MCHC 34.8 RDW 13.5 Plt Count 261 MPV 8.3 Sodium 134 L Potassium 4.5 Chloride 102 Carbon Dioxide 21 Anion Gap 11 BUN 9 Creatinine 0.9 Creat Clearance w eGFR > 60 Random Glucose 87 Calcium 8.7 Blood Type O POSITIVE Imaging: ab/pelvis CT: Borderline size of the appendix measuring 10 mm in diameter with questionable minimal stranding of the surrounding fat and without evidence of extraluminal air or fluid collection /abscess. Although the examination is not consistent with acute appendicitis, mild/early appendicitis could not be excluded. Correlate clinically and surgery consult is suggested. HOSPITAL COURSE: Date of Admission:12/04/18 28y/o male with PMH of asthma and schizophrenia presented to the ED with complaints of abdominal pain, 2 episodes of vomiting and diarrhea. of note; patient had went to [facility] ED on sunday when these issues started where he was admitted found to have early appendicitis he was given ceftriaxone and discharged a day later. He continued to have pain so he came to our ED- was afebrile with a normal WBC and ab/pelvis CT done with result above. Patient was give fluids/pain meds and seen by surgery. Patient did not need emergent appendectomy however he wanted it, so he underwent an appendectomy and was given a dose of cefoxitin pre-op. No pre/intra/post-operative complications were seen. Patient was discharged home with pain medications and follow up with dr cleary and PCP. IN addition, dr cleary had wanted patient to see a GI doctor for upper and lower endoscopy so he was given a referral for that as well. Date of Discharge: 12/06/18 Minutes to complete discharge: 39 Discharge Summary Reason For Visit: APPENDICITUS,ABDOMINAL PAIN Current Active Problems Abdominal pain (Acute) Appendicitis (Acute) Asthma (Acute) Right lower quadrant abdominal pain (Acute) Schizophrenia (Acute) Condition: Stable - Instructions Diet, Activity, Other Instructions: Postoperative instructions: You had a laparoscopic appendectomy on 12/05/[address] Jaquan Vasquez of [facility]. Activity: Resume your usual activities gradually, but no heavy exertion or lifting more than 10-15 pounds for 1 month. Remove dressings 48 hours after surgery; sticky tapes underneath will fall off by themselves. You may shower daily starting then, just pat the incision areas dry. No bath or swimming until skin incisions have healed. Eat lightly at first, but advance to your usual diet as tolerated. Pain: For pain, you may use and alternate Tylenol (acetaminophen) 1-2 pills and/ or ibuprofen 200 mg (1-3 pills) every 6 hours scheduled with food for the first 3 days, . If you are prescribed a Tylenol/narcotic combination for severe pain, use it instead of plain Tylenol as needed and switch back when your pain starts decreasing. Do not take more than 4000mg of acetaminophen in a day. Take medications as prescribed or indicated on the labeling. Please resume your home medications that you were taking prior to admission to the hospital. DIET: please eat small, low carb meals every 2-3 hours for the first week and please keep yourself hydrated with plenty of fluids. Follow-up: Call Dr. Cleary' office at [phone] to make your postop appointment (Sunday in approximately 2 weeks after surgery). Clinic is held in the Diagnostic Center on the first floor of [facility]. Call the office and return to the emergency room if you have: * increasing pain not responsive to pain medication * fever of 101F or higher * vomiting * unusual or increasing bleeding or drainage from wounds * increasing redness or swelling at wound sites * inability to urinate We are referring you to a primary care physician, please make an appointment with them within one week. IN addition, we are referring you to a gastroenterologsit, Dr. Bills, as per request of Dr. Cleary please make an appointment with him within one to two weeks. Referrals: Nael Raymundo MD [Staff Physician] - 1 Week Iron Bills MD [Staff Physician] - 2 Weeks Jaquan Cleary MD [Staff Physician] - 2 Weeks Disposition: HOME - Home Medications Comprehensive Discharge Medication List: Ambulatory Orders Diphenhydramine HCl [Benadryl Capsule -] 25 mg PO ONCE 12/04/18 Paliperidone [Invega -] 3 mg PO DAILY 12/04/18 Ibuprofen 400 mg PO Q6H #12 tablet 12/06/18 Problem List - Problems (1) Abdominal pain Code(s): R10.9 - UNSPECIFIED ABDOMINAL PAIN Qualifiers: Abdominal location: right lower quadrant Qualified Code(s): R10.31 - Right lower quadrant pain (2) Appendicitis Code(s): K37 - UNSPECIFIED APPENDICITIS Qualifiers: Appendicitis type: acute appendicitis Acute appendicitis type: unspecified acute appendicitis type Qualified Code(s): K35.80 - Unspecified acute appendicitis This patient is new to me today: No Emergency Visit: Yes ED Registration Date: 12/04/18 Care time: The patient presented to the Emergency Department on the above date and was hospitalized for further evaluation of their emergent condition. Critical Care patient: No - Discharge Referral Referred to [facility] Med P.C.: No
[2018-12-06] MEDS: AMOX TR/POT CLAV 875MG/125MG TABLETS (FP) PO SCH (18:45)
[2018-12-06] MEDS: SODIUM CHLORIDE 1,000 ML IV SCH (22:06)
[2018-12-07] MEDS: SODIUM CHLORIDE 1,000 ML IV SCH ×2 (02:02→08:18)
[2018-12-07] MEDS: ONDANSETRON 4 MG/2 ML VIAL IVPUSH SCH ×2 (02:02→09:34)
[2018-12-07] MEDS: AMOX TR/POT CLAV 875MG/125MG TABLETS (FP) PO SCH (08:18)
[2018-12-07 08:47] LABS: HEMATOCRIT 35.3 % (35.4-49); HEMOGLOBIN 12.4 GM/dL (11.7-16.9); MCH 28.8 pg (25.7-33.7); MEAN CELL VOLUME 82.3 fl (80-96); MEAN PLT VOLUME 8.2 fl (7.5-11.1); PLATELET COUNT 262 K/MM3 (134-434); RBC 4.29 M/mm3 (4.00-5.60); RDW 13.6 % (11.9-15.9); WHITE BLOOD COUNT 7.1 K/mm3 (4.0-10.0)
[2018-12-07 09:17] LABS: ANION GAP 7 MMOL/L (8-16); BLOOD UREA NITROGEN 10 mg/dL (7-18); CALCIUM 8.3 mg/dL (8.5-10.1); CHLORIDE 107 mmol/L (98-107); CO2 27 mmol/L (21-32); CREATININE 1.1 mg/dL (0.55-1.3); GLUCOSE,RANDOM 86 mg/dL (74-106); POTASSIUM 4.3 mmol/L (3.5-5.1); SODIUM 141 mmol/L (136-145)
--- NOTE | 2018-12-07 09:44 | PN ---
Progress Note (short form) - Note Progress Note: Vital Signs Temperature 97.4 F L 12/07/18 06:47 Pulse Rate 72 12/07/18 06:47 Respiratory Rate 20 12/07/18 06:47 Blood Pressure 122/65 12/07/18 06:47 O2 Sat by Pulse Oximetry (%) 98 12/06/18 09:00 Initial Vital Signs Temp Pulse Resp BP Pulse Ox 98.1 F 83 19 116/76 95 12/04/18 16:43 12/04/18 16:43 12/04/18 16:43 12/04/18 16:43 12/04/18 16:43 GENERAL: The patient is awake, alert, and fully oriented, in no acute distress. EYES:EOMI; PEERLA: no sclerla icterus. NECK: no JVD; no lymphadenopathy LUNGS: CTA B/L; no rales, rhonchi or wheezing. HEART: Regular rate and rhythm, S1, S2 without murmur, rub or gallop. ABDOMEN: mild distention, slight tenderness on the RLQ , no rebound or guarding , positive BS in all 4 quadrants. EXTREMITIES: 2+ pulses, warm, well-perfused, no edema. NEUROLOGICAL: Cranial nerves II through XII grossly intact. Normal speech, gait not observed. PSYCH: Normal mood, flat affect. SKIN: Warm, dry, normal turgor, no rashes or lesions noted CBCD WBC 7.1 K/mm3 (4.0-10.0) 12/07/18 06:00 RBC 4.29 M/mm3 (4.00-5.60) 12/07/18 06:00 Hgb 12.4 GM/dL (11.7-16.9) 12/07/18 06:00 Hct 35.3 % (35.4-49) L 12/07/18 06:00 MCV 82.3 fl (80-96) 12/07/18 06:00 MCHC 35.0 g/dl (32.0-35.9) 12/07/18 06:00 RDW 13.6 % (11.9-15.9) 12/07/18 06:00 Plt Count 262 K/MM3 (134-434) 12/07/18 06:00 MPV 8.2 fl (7.5-11.1) 12/07/18 06:00 CMP Sodium 141 mmol/L (136-145) 12/07/18 06:00 Potassium 4.3 mmol/L (3.5-5.1) 12/07/18 06:00 Chloride 107 mmol/L (98-107) 12/07/18 06:00 Carbon Dioxide 27 mmol/L (21-32) 12/07/18 06:00 Anion Gap 7 MMOL/L (8-16) L 12/07/18 06:00 BUN 10 mg/dL (7-18) 12/07/18 06:00 Creatinine 1.1 mg/dL (0.55-1.3) 12/07/18 06:00 Creat Clearance w eGFR > 60 (>60) 12/07/18 06:00 Random Glucose 86 mg/dL (74-106) 12/07/18 06:00 Calcium 8.3 mg/dL (8.5-10.1) L 12/07/18 06:00 Total Bilirubin 0.8 mg/dL (0.2-1) 12/05/18 08:00 AST 9 U/L (15-37) L 12/05/18 08:00 ALT 11 U/L (13-61) L 12/05/18 08:00 Alkaline Phosphatase 81 U/L (45-117) 12/05/18 08:00 Total Protein 6.3 g/dl (6.4-8.2) L 12/05/18 08:00 Albumin 3.4 g/dl (3.4-5.0) 12/05/18 08:00 Current Medications Generic Name Dose Route Start Last Admin Trade Name Thierryq PRN Reason Stop Dose Admin Acetaminophen 650 mg 12/05/18 17:51 Tylenol - PO Q6H PRN PAIN LEVEL 1-5 Amoxicillin/Clavulanate Potassium 1 tab 12/06/18 17:30 12/07/18 08:18 Augmentin - 875mg Tablet PO 1 tab BID@0800,1730 RUBI Administration Sodium Chloride 1,000 mls @ 150 mls/hr 12/05/18 20:02 12/07/18 08:18 Normal Saline - IV 150 mls/hr ASDIR RUBI Administration Ibuprofen 600 mg 12/05/18 17:51 12/06/18 16:47 Motrin - PO 600 mg Q6H PRN Administration PAIN LEVEL 1-5 Morphine Sulfate 4 mg 12/05/18 17:51 12/06/18 21:39 Morphine Sulfate IVPUSH 4 mg Q4H PRN Administration PAIN LEVEL 7 - 10 Non-Formulary Medication 3 each 12/06/18 10:00 Non-Formulary Med PO DAILY RUBI Ondansetron HCl 4 mg 12/06/18 02:30 12/07/18 09:34 Zofran Injection IVPUSH 4 mg Q8H-IV RUBI Administration Home Medications Medication Instructions Recorded Diphenhydramine HCl [Benadryl 25 mg PO ONCE 12/04/18 Capsule -] Paliperidone [Invega -] 3 mg PO DAILY 12/04/18 Amox-Tr/K Cl [Augmentin - 875Mg 1 tab PO BID #14 tablet 12/06/18 Tablet] Ibuprofen 400 mg PO Q6H #12 tablet 12/06/18 Oxycodone HCl/Acetaminophen 1 - 2 tab PO Q6H #40 tab MDD 5 12/06/18 [Percocet 5/325 -] CT abdomen and pelvis reviewed: No appendicitis but na't be excluded early appendicitis as per CT read. ASSESSMENT AND PLAN: Patient is a 28M with pmhx of asthma and schizophrenia presented to the ED with RLQ abdominal pain. #Abdominal pain: as per Ct , no appendicitis but early appendicitis cannot be excluded. As per surgeon, patient will go to OR for an appendectomy. Utox is negative. Zofran PRN for nausea; Tylenol 650 PRN for pain #Schizophrenia: cont home med: Invega 3 mg QD #Asthma; controlled: PRN inhaler #DVT Px: SCDs admit to med-surg full code
--- NOTE | 2018-12-07 13:57 | PN ---
Progress Note, Physician Chief Complaint: RLQ abdominal pain and intractable vomiting History of Present Illness: 28yo male PMH asthma and schizophrenia presented to the ED with RLQ abdominal pain that started this past Sunday. The pain is 8/10 located in the RLQ as well as umbilical region. stable post operatively. - Current Medication List Current Medications: Active Medications Acetaminophen (Tylenol -) 650 mg PO Q6H PRN PRN Reason: PAIN LEVEL 1-5 Amoxicillin/Clavulanate Potassium (Augmentin - 875mg Tablet) 1 tab PO BID@0800, 1730 [facility] Last Admin: 12/07/18 08:18 Dose: 1 tab Sodium Chloride (Normal Saline -) 1,000 mls @ 150 mls/hr IV ASDIR RUBI Last Admin: 12/07/18 08:18 Dose: 150 mls/hr Ibuprofen (Motrin -) 600 mg PO Q6H PRN PRN Reason: PAIN LEVEL 1-5 Last Admin: 12/06/18 16:47 Dose: 600 mg Morphine Sulfate (Morphine Sulfate) 4 mg IVPUSH Q4H PRN PRN Reason: PAIN LEVEL 7 - 10 Last Admin: 12/06/18 21:39 Dose: 4 mg Non-Formulary Medication (Non-Formulary Med) 3 each PO DAILY [facility] Ondansetron HCl (Zofran Injection) 4 mg IVPUSH Q8H-IV RUBI Last Admin: 12/07/18 09:34 Dose: 4 mg - Objective Vital Signs: Vital Signs Temperature 97.6 F 12/07/18 08:15 Pulse Rate 72 12/07/18 08:15 Respiratory Rate 20 12/07/18 08:15 Blood Pressure 129/73 12/07/18 08:15 O2 Sat by Pulse Oximetry (%) 98 12/06/18 09:00 Vital Signs Period Temp Pulse Resp BP Sys/Mejia Pulse Ox Last 24 Hr 97.4 F-97.6 F 66-72 20-20 118-129/65-73 Constitutional: Yes: Well Nourished, No Distress, Calm Eyes: Yes: Conjunctiva Clear, EOM Intact HENT: Yes: Atraumatic, Normocephalic Neck: Yes: Supple, Trachea Midline Cardiovascular: Yes: Regular Rate and Rhythm, S1, S2 Respiratory: Yes: Regular, CTA Bilaterally Gastrointestinal: Yes: Normal Bowel Sounds, Soft. No: Abdomen, Obese, Distention, Tenderness, Tenderness, Epigastrium, Tenderness, Rebound ...Rectal Exam: Yes: Deferred Genitourinary: No: CVA Tenderness - Left, CVA Tenderness - Right Breast(s): No: Discharge from Nipple, Nipple Inversion Musculoskeletal: No: Back Pain, Joint Stiffness, Joint Swelling Extremities: No: Cool, Cyanosis Edema: No Peripheral Pulses WNL: Yes Peripheral Pulses: Left Radial: 2+, Right Radial: 2+, Left Doralis Pedis: 2+, Right Dorsalis Pedis: 2+, Left Femoral: 2+, Right Femoral: 2+ Integumentary: Yes: Incision. No: Erythema, Jaundice Wound/Incision: Yes: Clean/Dry, Well Approximated, Dressing Dry and Intact Neurological: Yes: Alert, Oriented Psychiatric: Yes: Alert, Oriented Labs: CBC, BMP 12/07/18 06:00 12/07/18 06:00 INR, PTT INR 1.06 (0.83-1.09) 12/04/18 20:44 Problem List - Problems (1) Appendicitis Assessment/Plan: 28 yo male with persistent RLQ pain, no similar previous pains, no fever, normal WBC while in PO antibiotics from [facility], Imaging finding are suspicious but not diagnostic. He has RLQ tenderness that is focal, without peritonitis. He is explained all finding and offered appendectomy. He is aware of the possibility of it not being acute but is willing to proceed. POD# 2 s/p laparoscopic appenectomy. tolerated clears last night and breakfast today. Persistent abdominal pain, very flat affected. Better this morning advance diet as tolerated OOB anbulate encourage IS IV antibiotics now and continue as outpatient adequate analgesia GI evaluation as outpatient for upper and lower endoscopy antiemetic therapy around the clock please discharge 12/07 Code(s): K37 - UNSPECIFIED APPENDICITIS Qualifiers: Appendicitis type: acute appendicitis Acute appendicitis type: unspecified acute appendicitis type Qualified Code(s): K35.80 - Unspecified acute appendicitis (2) Right lower quadrant abdominal pain Code(s): R10.31 - RIGHT LOWER QUADRANT PAIN (3) Schizophrenia Code(s): F20.9 - SCHIZOPHRENIA, UNSPECIFIED Qualifiers: Schizophrenia type: paranoid schizophrenia Qualified Code(s): F20.0 - Paranoid schizophrenia (4) Asthma Code(s): J45.909 - UNSPECIFIED ASTHMA, UNCOMPLICATED Qualifiers: Asthma severity: mild Asthma persistence: intermittent Asthma complication type: uncomplicated Qualified Code(s): J45.20 - Mild intermittent asthma, uncomplicated
--- NOTE | 2018-12-07 14:23 | DS ---
Physical Exam: SUBJECTIVE: Patient seen and examined Patient is feeling better, no fever or chills. OBJECTIVE: Vital Signs Temperature 97.6 F 12/07/18 08:15 Pulse Rate 72 12/07/18 08:15 Respiratory Rate 20 12/07/18 08:15 Blood Pressure 129/73 12/07/18 08:15 O2 Sat by Pulse Oximetry (%) 98 12/06/18 09:00 PHYSICAL EXAM GENERAL: The patient is awake, alert, and fully oriented, in no acute distress. HEAD: Normal with no signs of trauma. EYES: PERRL, extraocular movements intact, sclera anicteric, conjunctiva clear. ENT: Ears normal, oropharynx clear without exudates, moist mucous membranes. NECK: Trachea midline, full range of motion, supple. LUNGS: Breath sounds equal, clear to auscultation bilaterally, no wheezes, no crackles, no accessory muscle use. HEART: Regular rate and rhythm, S1, S2 without murmur, rub or gallop. ABDOMEN: Soft,mild tenderness at the incision site, site is clean, BS positive, no guarding, no rebound, no hepatosplenomegaly, no masses. EXTREMITIES: 2+ pulses, warm, well-perfused, no edema. NEUROLOGICAL: Cranial nerves II through XII grossly intact. Normal speech, gait is stable. PSYCH: Normal mood, normal affect. SKIN: Warm, dry, normal turgor, no rashes or lesions noted. LABS WBC 7.1 K/mm3 (4.0-10.0) 12/07/18 06:00 RBC 4.29 M/mm3 (4.00-5.60) 12/07/18 06:00 Hgb 12.4 GM/dL (11.7-16.9) 12/07/18 06:00 Hct 35.3 % (35.4-49) L 12/07/18 06:00 MCV 82.3 fl (80-96) 12/07/18 06:00 MCHC 35.0 g/dl (32.0-35.9) 12/07/18 06:00 RDW 13.6 % (11.9-15.9) 12/07/18 06:00 Plt Count 262 K/MM3 (134-434) 12/07/18 06:00 MPV 8.2 fl (7.5-11.1) 12/07/18 06:00 CMP Sodium 141 mmol/L (136-145) 12/07/18 06:00 Potassium 4.3 mmol/L (3.5-5.1) 12/07/18 06:00 Chloride 107 mmol/L (98-107) 12/07/18 06:00 Carbon Dioxide 27 mmol/L (21-32) 12/07/18 06:00 Anion Gap 7 MMOL/L (8-16) L 12/07/18 06:00 BUN 10 mg/dL (7-18) 12/07/18 06:00 Creatinine 1.1 mg/dL (0.55-1.3) 12/07/18 06:00 Creat Clearance w eGFR > 60 (>60) 12/07/18 06:00 Random Glucose 86 mg/dL (74-106) 12/07/18 06:00 Calcium 8.3 mg/dL (8.5-10.1) L 12/07/18 06:00 Total Bilirubin 0.8 mg/dL (0.2-1) 12/05/18 08:00 AST 9 U/L (15-37) L 12/05/18 08:00 ALT 11 U/L (13-61) L 12/05/18 08:00 Alkaline Phosphatase 81 U/L (45-117) 12/05/18 08:00 Total Protein 6.3 g/dl (6.4-8.2) L 12/05/18 08:00 Albumin 3.4 g/dl (3.4-5.0) 12/05/18 08:00 Current Medications Generic Name Dose Route Start Last Admin Trade Name Thierryq PRN Reason Stop Dose Admin Acetaminophen 650 mg 12/05/18 17:51 Tylenol - PO Q6H PRN PAIN LEVEL 1-5 Amoxicillin/Clavulanate Potassium 1 tab 12/06/18 17:30 12/07/18 08:18 Augmentin - 875mg Tablet PO 1 tab BID@0800,1730 RUBI Administration Sodium Chloride 1,000 mls @ 150 mls/hr 12/05/18 20:02 12/07/18 08:18 Normal Saline - IV 150 mls/hr ASDIR RUBI Administration Ibuprofen 600 mg 12/05/18 17:51 12/06/18 16:47 Motrin - PO 600 mg Q6H PRN Administration PAIN LEVEL 1-5 Morphine Sulfate 4 mg 12/05/18 17:51 12/06/18 21:39 Morphine Sulfate IVPUSH 4 mg Q4H PRN Administration PAIN LEVEL 7 - 10 Non-Formulary Medication 3 each 12/06/18 10:00 Non-Formulary Med PO DAILY RUBI Ondansetron HCl 4 mg 12/06/18 02:30 12/07/18 09:34 Zofran Injection IVPUSH 4 mg Q8H-IV RUBI Administration Home Medications Medication Instructions Recorded Diphenhydramine HCl [Benadryl 25 mg PO ONCE 12/04/18 Capsule -] Paliperidone [Invega -] 3 mg PO DAILY 12/04/18 Amox-Tr/K Cl [Augmentin - 875Mg 1 tab PO BID #14 tablet 12/06/18 Tablet] Ibuprofen 400 mg PO Q6H #12 tablet 12/06/18 Oxycodone HCl/Acetaminophen 1 - 2 tab PO Q6H #40 tab MDD 5 12/06/18 [Percocet 5/325 -] CT abdomen and pelvis reviewed: No appendicitis but na't be excluded early appendicitis as per CT read. HOSPITAL COURSE: Date of Admission:12/04/18 Date of Discharge: 12/07/18 Patient is a 28M with pmhx of asthma and schizophrenia presented to the ED with RLQ abdominal pain. #POD#2 s/p Lap appendectomy , patient can be discharged by the surgeon. patient is being discharged by the surgeon on Augmentin and oxycodone. #Schizophrenia: cont home med: Invega 3 mg QD #Asthma; controlled: PRN inhaler discharge patient home. Minutes to complete discharge: 40 Discharge Summary Reason For Visit: APPENDICITUS,ABDOMINAL PAIN Current Active Problems Abdominal pain (Acute) Appendicitis (Acute) Asthma (Acute) Right lower quadrant abdominal pain (Acute) Schizophrenia (Acute) Condition: Stable - Instructions Diet, Activity, Other Instructions: Postoperative instructions: You had a laparoscopic appendectomy on 12/05/[address] Jaquan Vasquez of [facility]. Activity: Resume your usual activities gradually, but no heavy exertion or lifting more than 10-15 pounds for 1 month. Remove dressings 48 hours after surgery; sticky tapes underneath will fall off by themselves. You may shower daily starting then, just pat the incision areas dry. No bath or swimming until skin incisions have healed. Eat lightly at first, but advance to your usual diet as tolerated. Pain: For pain, you may use and alternate Tylenol (acetaminophen) 1-2 pills and/ or ibuprofen 200 mg (1-3 pills) every 6 hours scheduled with food for the first 3 days, . If you are prescribed a Tylenol/narcotic combination for severe pain, use it instead of plain Tylenol as needed and switch back when your pain starts decreasing. Do not take more than 4000mg of acetaminophen in a day. Take medications as prescribed or indicated on the labeling. Please resume your home medications that you were taking prior to admission to the hospital. DIET: please eat small, low carb meals every 2-3 hours for the first week and please keep yourself hydrated with plenty of fluids. Follow-up: Call Dr. Cleary' office at [phone] to make your postop appointment (Sunday in approximately 2 weeks after surgery). Clinic is held in the Diagnostic Center on the first floor of [facility]. Call the office and return to the emergency room if you have: * increasing pain not responsive to pain medication * fever of 101F or higher * vomiting * unusual or increasing bleeding or drainage from wounds * increasing redness or swelling at wound sites * inability to urinate We are referring you to a primary care physician, please make an appointment with them within one week. IN addition, we are referring you to a gastroenterologsit, Dr. Bills, as per request of Dr. Cleary please make an appointment with him within one to two weeks. Referrals: Nael Raymundo MD [Staff Physician] - 1 Week Iron Bills MD [Staff Physician] - 2 Weeks Jaquan Cleary MD [Staff Physician] - 2 Weeks Disposition: HOME - Home Medications Comprehensive Discharge Medication List: Ambulatory Orders Diphenhydramine HCl [Benadryl Capsule -] 25 mg PO ONCE 12/04/18 Paliperidone [Invega -] 3 mg PO DAILY 12/04/18 Amox-Tr/K Cl [Augmentin - 875Mg Tablet] 1 tab PO BID #14 tablet 12/06/18 Ibuprofen 400 mg PO Q6H #12 tablet 12/06/18 Oxycodone HCl/Acetaminophen [Percocet 5/325 -] 1 - 2 tab PO Q6H #40 tab MDD 5 This patient is new to me today: No Emergency Visit: Yes ED Registration Date: 12/04/18 Care time: The patient presented to the Emergency Department on the above date and was hospitalized for further evaluation of their emergent condition. Critical Care patient: No - Discharge Referral Referred to [facility] Med P.C.: No
[2018-12-07 14:49] VITALS: BP 121/92; PULSE 66; TEMP 98.4
--- NOTE | 2018-12-09 17:41 | PATH ---
Surgical Pathology Report Patient Name: LUCITA DANIELS Med. Rec. #: [id number] /Age/Gender: 1990 (Age: 28) / M Account: [id number] Location: [facility] MED/SURG Taken: 12/05/2018 Received: 12/06/2018 Reported: 12/09/2018 Physicians: Nigel Turpin M.D. Specimen(s) Received APPENDIX Clinical History Appendicitis, abdominal pain Final Diagnosis APPENDIX, LAPAROSCOPIC APPENDECTOMY: ACUTE APPENDICITIS. Electronically Signed Luisa Delgado M.D. Gross Description Received in formalin, labeled "appendix," is a 5.5 cm. in length vermiform appendix with a stapled margin of resection and moderate attached fat. The serosa is rosado beal and smooth. Sectioning reveals a focally dilated lumen containing fecal material. The wall of the appendix averages 0.1 cm. in thickness. General Operator sections are submitted in one cassette. /12/06/2018 [facility]
== END 2018-12-07 16:29 | disposition home or self-care (01) | DRG 225 ==
LOC: JER 16:39 → JERBED 21:50 → OBSVTOIN 23:17 → J8W 12-05 02:59
PROVIDERS: ADMIT Internal Medicine; ATTEND Internal Medicine
PROC: 0DTJ4ZZ Resection of Appendix, Percutaneous Endoscopic Approach (ICD-10-PCS; principal; 2018-12-05 17:01)
DX: K35.80 Unspecified acute appendicitis (principal); E66.9 Obesity, unspecified; Z68.30 Body mass index [BMI] 30.0-30.9, adult; R10.31 Right lower quadrant pain; J45.20 Mild intermittent asthma, uncomplicated; F20.89 Other schizophrenia
CPT/HCPCS: 36415; 74177-TC; 80048; 80053; 80307; 81003; 85025; 85027; 85610; 85730; 86850; 86900; 86901; 88304-TC; 93005; 93010; 94760; 99284-25; G0378; J0131; J7030